=== PATIENT | female | born 1960 | race Caucasian/White ===

== ENCOUNTER 2025-09-19 16:09 | Observation (INO) | payer BC, SELFPAY ==
[2025-09-19] VITALS (23 sets, daily range): BP systolic 108–159; BP diastolic 64–102; PULSE 90–108; RESP 17–35; TEMP 37.2–37.6; O2SAT 94–100; BMI 47.5
--- NOTE | ~2025-09-19 | XR_ITS ---
EXAMINATION: XR chest 2V DATE: 09/19/2025 16:52 INDICATION: Upper respiratory tract infection. TECHNIQUE: Frontal and lateral views of the chest were obtained. COMPARISON: None. FINDINGS: Limited visualization due to large body habitus. Mild cardiomegaly is suggested. Suspect patchy airspace opacity in the right lower lobe. No effusion. IMPRESSION: 1. Mild cardiomegaly. Suspect airspace opacity due to consolidation in the right lower lobe. Possible pneumonia. Reviewed, dictated and finalized at location T. OR DATA DEVELOPER IMPRESSION: 1. Mild cardiomegaly. Suspect airspace opacity due to consolidation in the righ t lower lobe. Possible pneumonia.
--- NOTE | ~2025-09-19 | CT_ITS ---
EXAMINATION: CT soft tissue neck w con COMPARISON: None HISTORY: r/o peritonsillar abscess TECHNIQUE: Axial images were obtained with IV contrast. Sagittal, coronal reconstruction images were obtained from the axial views. Omnipaque 370, [address] scan performed using dose optimization techniques including the following automated exposure control; adjustment of mA and/or kV; use of iterative reconstruction technique. Automatic exposure control was used to reduce radiation dose. Permanent radiation dose record is archived to PACS. FINDINGS: Visualized brain parenchyma appears unremarkable. Optic globes are unremarkable. There is no thickening of the prevertebral space. There is asymmetry of the airway mass effect on the right side with marked enlargement and heterogeneity of the right tonsillar tissue. There is no rim-enhancing abscess identified however there is complex probable phlegmon noted measuring 1.5 x 1 cm. Edema extends into the base of the tongue, the uvula and the right aryepiglottic folds as well as the right vocal cord and posterior hypopharynx. There is no lymphadenopathy in the anterior superior mediastinum. No thickening of the esophagus There is stranding within the right parapharyngeal space. The left parapharyngeal space unremarkable. There are enlarged lymph nodes in the right jugulodigastric space and posterior cervical triangle the largest 1.5 x 1.5 cm. The submandibular glands are unremarkable. The parotid glands appear unremarkable. The lung apices are unremarkable. There are no sclerotic or lytic lesions. No significant sinusitis IMPRESSION: Severe tonsillitis detailed above with significant mass effect and narrowing of the airway with phlegmon detailed above although there is no rim- enhancing abscess at this time. Follow-up is recommended to assess Reviewed, dictated and finalized at location P. ETING ROTATION ASSOCIATE IMPRESSION: Severe tonsillitis detailed above with significant mass effect and narrowing of the airway with phlegmon detailed above although there is no rim-e nhancing abscess at this time. Follow-up is recommended to assess
--- NOTE | 2025-09-19 16:21 | ECG_ITS ---
Test Date: 2025-09-19 16:40:43 Measurements Intervals [place] Rate: 87 P: 44 MD: 144 QRS: 9 QRSD: 93 T: 51 QT: 337 QTc: 406 Interpretive Statements SINUS RHYTHM Electronically Signed On 09-19-2025 19:08:47 STOCKROOM COORDINATOR by Luba Mathur M.D.
--- NOTE | 2025-09-19 16:24 | ED_ITS ---
HPI - Neck Pain/Injury General Chief Complaint: Upper Respiratory Infection <Pennie Ricardo APRN - Last Filed: 09/19/25 18:30> Stated Complaint: swollen throat <Pennie Ricardo APRN - Last Filed: 09/19/25 18:30> Time Seen by Provider: 09/19/25 16:12 <Pennie Ricardo APRN - Last Filed: 09/19/25 18:30> History of Present Illness HPI Narrative: Patient is a 64-year-old female who presents to the ER with neck swelling and sore throat. She reports she was at urgent care several days ago and swab for strep throat. Patient reports the strep swab was negative but she was placed on antibiotics. She reports the swelling and pain have gotten worse. Patient reports she has a history of peritonsillar abscesses. She denies any recent fevers, neck stiffness, difficulty swallowing, or drooling. <Pennie Ricardo APRN - Last Filed: 09/19/25 18:30> Related Data Home Medications: Home Medications ?Medication ?Instructions ?Recorded ?Confirmed ?Last Taken ?Type cetirizine 5 mg-pseudoephedrine ER 1 tablet PO ONCE 09/19/25 09/18/25 History 120 mg tablet,extended release,12hr (All Day Allergy-D) ofloxacin 0.3 % ear drops 10 drp RIGHT EAR DAILY 09/1909/19/25 09/18/25 History <Pennie Ricardo APRN - Last Filed: 09/19/25 18:30> Allergies/Adverse Reactions: Allergies Allergy/AdvReac Type Severity Reaction Status Date / Time No Known Allergies Allergy Verified 09/19/25 21:27 <Pennie Ricardo APRN - Last Filed: 09/19/25 18:30> [facility] Past Medical History Medical History: Medical History (Updated 09/20/25 @ 19:20 by Rasta Leary MD) Fibroid tumor Peritonsillar abscess <Pennie Ricardo APRN - Last Filed: 09/19/25 18:30> Surgical History Surgical History: Surgical History (Updated 09/19/25 @ 21:41 by Claudia Choudhary APRN) H/O: hysterectomy History of incision and drainage Tonsillar abscess <Pennie Ricardo APRN - Last Filed: 09/19/25 18:30> Family History Family History: Family History Grandparent Parkinsons disease Grandparent Neuropathy Diabetes mellitus Father Hypertension Mother Hyperlipidemia <Pennie Ricardo APRN - Last Filed: 09/19/25 18:30> Social History Social History: Social History (Updated 09/19/25 @ 21:42 by Claudia Choudhary APRN) Social History: She is and has 1 daughter. She is retired. Her daughter lives in [place]. Code status: Full code Smoking status: Never smoker Alcohol intake: never Substance use: never Lack of Transportation: No Lack of Food: Never True Current Housing: I Have Housing Concerned About Future Housing: No Difficulty Paying Gas/Electric Bills: No Difficulty Paying for Meds: No Currently Unemployed: No Education: Bachelor's Degree Difficulty w/ Childcare or Family Care: No Spiritual care concerns: No <Pennie Ricardo APRN - Last Filed: 09/19/25 18:30> Exam 2 Narrative: GENERAL: Well appearing, well-nourished, non-toxic, in no acute distress. HEAD: Normocephalic, atraumatic. + redness to throat, right uvula deviation NECK: Supple. + bilateral cervical adenopathy. RESPIRATORY: Airway patent, respirations nonlabored. Slight crackles bilateral bases CARDIOVASCULAR: Regular rate and rhythm without murmurs, rubs, or gallops. Peripheral pulses 2+ and equal bilaterally. ABDOMINAL: Soft, nontender, nondistended, no hepatosplenomegaly. Normoactive BS. MUSCULOSKELETAL: Moves all extremities. Strength/ROM intact without gross deformities. SKIN: Warm, dry, normal color. No rashes. NEURO: A&O X3. Speech clear. Cranial nerves II-XII intact. No ataxic movements. PSYCHIATRIC: Appropriate mood and affect. Normal interaction. <Pennie Ricardo APRN - Last Filed: 09/19/25 18:30> Course WAITER/WAITRESS SECOND CLASS/PA Physician Supervision This visit was performed by both a physician and an Advanced Managed Care Provider. I performed all aspects of the Medical Decision Making as documented. <Rasta Leary MD - Last Filed: 09/20/25 19:20> Vital Signs Vital signs: Vital Signs Temperature 98.9 F 09/19/25 16:15 Pulse Rate 108 H 09/19/25 16:15 Respiratory Rate 25 H 09/19/25 16:15 Blood Pressure 159/102 H 09/19/25 16:15 Pulse Oximetry 98 09/19/25 16:15 Oxygen Delivery Room Air 09/19/25 16:15 Temperature 98.3 F 09/20/25 13:45 Pulse Rate 98 09/20/25 13:45 Respiratory Rate 20 09/20/25 13:45 Blood Pressure 134/74 09/20/25 13:45 Pulse Oximetry 98 09/20/25 13:45 Oxygen Delivery Room Air 09/19/25 23:00 <Pennie Ricardo, ADMITTING CLERK - Last Filed: 09/19/25 18:30> Vital Signs Temperature 98.9 F 09/19/25 16:15 Pulse Rate 108 H 09/19/25 16:15 Respiratory Rate 25 H 09/19/25 16:15 Blood Pressure 159/102 H 09/19/25 16:15 Pulse Oximetry 98 09/19/25 16:15 Oxygen Delivery Room Air 09/19/25 16:15 Temperature 98.3 F 09/20/25 13:45 Pulse Rate 98 09/20/25 13:45 Respiratory Rate 20 09/20/25 13:45 Blood Pressure 134/74 09/20/25 13:45 Pulse Oximetry 98 09/20/25 13:45 Oxygen Delivery Room Air 09/19/25 23:00 <Rasta Leary MD - Last Filed: 09/20/25 19:20> MDM - Neck Pain/Injury MDM Narrative Medical decision making narrative: Patient is a 64-year-old female who presents to the ER with neck swelling and sore throat. She reports she was at urgent care several days ago and swab for strep throat. Patient reports the strep swab was negative but she was placed on antibiotics. She reports the swelling and pain have gotten worse. Patient reports she has a history of peritonsillar abscesses. She denies any recent fevers, neck stiffness, difficulty swallowing, or drooling. Labs Ordered: CBC, CMP, CRP, lactic acid, PTT, INR Imaging Ordered: Chest x-ray, CT soft tissue neck Medications Ordered: 3 L normal saline IV bolus, ceftriaxone 1 g IV, Decadron 10 mg Results: Patient's CT scan indicates Visualized brain parenchyma appears unremarkable. Optic globes are unremarkable. There is no thickening of the prevertebral space. There is asymmetry of the airway mass effect on the right side with marked enlargement and heterogeneity of the right tonsillar tissue. There is no rim-enhancing abscess identified however there is complex probable phlegmon noted measuring 1.5 x 1 cm. Edema extends into the base of the tongue, the uvula and the right aryepiglottic folds as well as the right vocal cord and posterior hypopharynx. There is no lymphadenopathy in the anterior superior mediastinum. No thickening of the esophagus There is stranding within the right parapharyngeal space. The left parapharyngeal space unremarkable. There are enlarged lymph nodes in the right jugulodigastric space and posterior cervical triangle the largest 1.5 x 1.5 cm. The submandibular glands are unremarkable. The parotid glands appear unremarkable. The lung apices are unremarkable. There are no sclerotic or lytic lesions. No significant sinusitis IMPRESSION: Severe tonsillitis detailed above with significant mass effect and narrowing of the airway with phlegmon detailed above although there is no rim- enhancing abscess at this time. Follow-up is recommended to assess Consults:1740- Spoke with ENT, Dr. Murrieta, who advised pt be admitted to the hospital for further evaluation and treatment. She should receive Decadron every eight hours and Unasyn IV. Dr. Murrieta will see the pt tomorrow morning in the hospital. MDM: Results of imaging and lab work shared with patient and her family. It was advised patient be admitted to the hospital for further evaluation and treatment. Patient and her family verbalized understanding and are in agreement with plan. 1800- Spoke with hospitalist, Estefany Ospina NP, who is in agreement with plan for admission. Pt will be admitted to med/surg with continuous pulse oximetry. CRITICAL CARE ADDENDUM: Indication: Rule out sepsis Time type: intermittent I provided a total of 35 minutes of critical care excluding separately billable procedures. This includes time w/ EMS, initial bedside evaluation, reviewing old records, review of testing done while under my care, discussion w/ the family, nurses, consumer services consultant and guiding the patient?s care while in the emergency department. <Pennie Ricardo APRN - Last Filed: 09/19/25 18:30> Lab Data Result diagrams: 09/19/25 16:33 09/20/25 05:49 <Pennie Ricardo APRN - Last Filed: 09/19/25 18:30> Labs: Lab Results 09/19/25 Range/Units 16:33 WBC 9.5 (4.5-10.0) K/mm3 RBC 4.51 (4.2-5.4) M/mm3 Hgb 13.7 (12.0-15.0) g/dL Hct 41.8 (37.0-47.0) % MCV 92.7 (80-100) fl MCH 30.4 (26-34) pg MCHC 32.8 (32-36) g/dl RDW 14.2 (11.5-14.5) % Plt Count 285 (150-375) k/mm3 MPV 9.5 (7.4-10.4) fl Immature Gran % (Auto) 0.3 (0-0.5) % Neut % (Auto) 75.2 H (45.5-73.1) % Lymph % (Auto) 8.4 L (18.3-44.2) % [place] % (Auto) 14.4 H (2.6-8.5) % Eos % (Auto) 1.3 (0-4.4) % Baso % (Auto) 0.4 (0.2-1.2) % Lymph # (Auto) 0.80 L (0.9-3.2) K/mm3 [place] # (Auto) 1.4 H (0.1-0.6) K/mm3 Eos # (Auto) 0.1 (0-0.3) K/mm3 Baso # (Auto) 0.0 (0.0-0.1) K/mm3 Abs Immat Gran (auto) 0.03 (0.00-0.031) K/mm3 Absolute Neuts (auto) 7.1 H (1.3-6.7) K/mm3 Absolute Nucleated RBC 0.000 (0.0-0.012) K/mm3 Nucleated RBC % 0.0 (0.0-0.2) % PT 14.7 (11.1-14.7) Seconds INR 1.1 APTT 29.4 (22.3-36.8) Seconds Sodium 136 L (137-145) mmol/L Potassium 3.6 (3.4-5.0) mmol/L Chloride 102 (98-107) mmol/L Carbon Dioxide 25 (22-30) mmol/L Anion Gap 9 (4-12) mmol/L BUN 9 (7-17) mg/dL Creatinine 0.48 L (0.7-1.0) mg/dL Estim Creat Clear Calc 112 ml/min Estimated GFR > 60 (59 - ) Glucose 127 H (65-110) mg/dL Lactic Acid 1.2 (0.7-2.0) mmol/L Calcium 9.4 (8.4-10.2) mg/dL Total Bilirubin 0.6 (0.2-1.3) mg/dL AST 29 (14-36) U/L ALT 48 H (6-35) U/L Alkaline Phosphatase 87 (38-126) U/L C-Reactive Protein 15.1 H (<1.0) mg/dL Total Protein 7.8 (6.3-8.2) g/dL Albumin 4.2 (3.5-5.1) g/dL Monoscreen Negative (Negative) <Pennie Ricardo, ADMITTING CLERK - Last Filed: 09/19/25 18:30> Lab Results 09/19/25 Range/Units 16:33 WBC 9.5 (4.5-10.0) K/mm3 RBC 4.51 (4.2-5.4) M/mm3 Hgb 13.7 (12.0-15.0) g/dL Hct 41.8 (37.0-47.0) % MCV 92.7 (80-100) fl MCH 30.4 (26-34) pg MCHC 32.8 (32-36) g/dl RDW 14.2 (11.5-14.5) % Plt Count 285 (150-375) k/mm3 MPV 9.5 (7.4-10.4) fl Immature Gran % (Auto) 0.3 (0-0.5) % Neut % (Auto) 75.2 H (45.5-73.1) % Lymph % (Auto) 8.4 L (18.3-44.2) % [place] % (Auto) 14.4 H (2.6-8.5) % Eos % (Auto) 1.3 (0-4.4) % Baso % (Auto) 0.4 (0.2-1.2) % Lymph # (Auto) 0.80 L (0.9-3.2) K/mm3 [place] # (Auto) 1.4 H (0.1-0.6) K/mm3 Eos # (Auto) 0.1 (0-0.3) K/mm3 Baso # (Auto) 0.0 (0.0-0.1) K/mm3 Abs Immat Gran (auto) 0.03 (0.00-0.031) K/mm3 Absolute Neuts (auto) 7.1 H (1.3-6.7) K/mm3 Absolute Nucleated RBC 0.000 (0.0-0.012) K/mm3 Nucleated RBC % 0.0 (0.0-0.2) % PT 14.7 (11.1-14.7) Seconds INR 1.1 APTT 29.4 (22.3-36.8) Seconds Sodium 136 L (137-145) mmol/L Potassium 3.6 (3.4-5.0) mmol/L Chloride 102 (98-107) mmol/L Carbon Dioxide 25 (22-30) mmol/L Anion Gap 9 (4-12) mmol/L BUN 9 (7-17) mg/dL Creatinine 0.48 L (0.7-1.0) mg/dL Estim Creat Clear Calc 112 ml/min Estimated GFR > 60 (59 - ) Glucose 127 H (65-110) mg/dL Lactic Acid 1.2 (0.7-2.0) mmol/L Calcium 9.4 (8.4-10.2) mg/dL Total Bilirubin 0.6 (0.2-1.3) mg/dL AST 29 (14-36) U/L ALT 48 H (6-35) U/L Alkaline Phosphatase 87 (38-126) U/L C-Reactive Protein 15.1 H (<1.0) mg/dL Total Protein 7.8 (6.3-8.2) g/dL Albumin 4.2 (3.5-5.1) g/dL Monoscreen Negative (Negative) <Rasta Leary MD - Last Filed: 09/20/25 19:20> Critical Care Time Critical Care Time Critical Care Time: Yes <Pennie Ricardo APRN - Last Filed: 09/19/25 18:30> Total Critical Care Time: 35 <Pennie Ricardo APRN - Last Filed: 09/19/25 18:30> Discharge Plan Discharge Clinical Impression: Peritonsillar abscess <Pennie Ricardo APRN - Last Filed: 09/19/25 18:30> Patient Disposition: Still a Patient <Pennie Ricardo APRN - Last Filed: 09/19/25 18:30> Condition: Stable <Pennie Ricardo APRN - Last Filed: 09/19/25 18:30>
[2025-09-19] MEDS: SODIUM CHLORIDE 0.9% IV 1,000 ML 999 ML IV CONT ×3 (16:38)
[2025-09-19] MEDS: SODIUM CHLORIDE 0.9% IV 200 ML 999 ML IV CONT (16:39)
[2025-09-19] MEDS: dexAMETHasone SOD PHOS INJ 10 MG/ML 1 ML VIAL IV PUSH ×2 (16:39→22:59)
[2025-09-19 16:45] LABS: Hematocrit 41.8 % (37.0-47.0); Hemoglobin 13.7 g/dL (12.0-15.0); Immature Granulocyte Percent A 0.3 % (0-0.5); Lymphocytes Absolute Auto 0.80 K/mm3 (0.9-3.2); Mean Corpuscular HGB Conc 32.8 g/dl (32-36); Mean Corpuscular Hemoglobin 30.4 pg (26-34); Mean Corpuscular Volume 92.7 fl (80-100); Nucleated Red Blood Cells Absolute Auto 0.000 K/mm3 (0.0-0.012); Nucleated Red Blood Cells Perc 0.0 % (0.0-0.2); Platelet Count Result 285 k/mm3 (150-375); Red Blood Count 4.51 M/mm3 (4.2-5.4); White Blood Count 9.5 K/mm3 (4.5-10.0)
[2025-09-19 16:54] LABS: INR 1.1; Prothrombin Time 14.7 Seconds (11.1-14.7)
[2025-09-19 16:55] LABS: Partial Thromboplastin Time 29.4 Seconds (22.3-36.8)
[2025-09-19 16:57] LABS: Alanine Aminotransferase 48 U/L (6-35); Albumin Level 4.2 g/dL (3.5-5.1); Alkaline Phosphatase 87 U/L (38-126); Anion Gap 9 mmol/L (4-12); Aspartate Amino Transferase 29 U/L (14-36); Bilirubin,Total 0.6 mg/dL (0.2-1.3); Blood Urea Nitrogen 9 mg/dL (7-17); Calcium 9.4 mg/dL (8.4-10.2); Carbon Dioxide 25 mmol/L (22-30); Chloride 102 mmol/L (98-107); Estimated CRCL calculation 112 ml/min; Estimated Glomerular Filt Rate > 60; Glucose 127 mg/dL (65-110); Potassium 3.6 mmol/L (3.4-5.0); Sodium 136 mmol/L (137-145); Total Protein 7.8 g/dL (6.3-8.2)
[2025-09-19] MEDS: cefTRIAXone 1 GM in SODIUM CHLORIDE 0.9% IV 50 ML 100 ML IVPB (17:19)
[2025-09-19] MEDS: AMPICILLIN SODIUM/SULBACTAM 3 GM in SODIUM CHLORIDE 0.9% IV 100 ML 200 ML IVPB ×2 (18:11→23:00)
[2025-09-19 18:15] LABS: CRP 15.1 mg/dL (<1.0)
--- NOTE | 2025-09-19 19:47 | WPCEDHO ---
ED Hand Off Checklist All vitals saved:yes IV Site documented:yes All med administrations documented:yes Triage Note Triage Note pt to ed with c/o sore throat 09/19/25 16:15 that started on Monday where she was treated with antibiotics for strep or tonsilitis. patient has a history of peritonsillar abscess that needed to be lanced. pt states that she feels like her throat is swelling shut. patient has swelling to right neck/jaw Allergies No Known Allergies Allergy (Verified 09/19/25 16:26) Administered/Completed Medications Discontinued Medications Dexamethasone Sodium Phosphate (Dexamethasone Sod Phos Inj 10 Mg/Ml 1 Ml Vial) 10 mg IV PUSH ONCE ONE Stop: 09/19/25 16:22 Last Admin: 09/19/25 16:39 Dose: 10 mg Documented By: [facility] Ceftriaxone Sodium 1 gm/ (Sodium Chloride) 50 mls @ 100 mls/hr IVPB ONCE STA Stop: 09/19/25 16:50 Last Infusion: 09/19/25 17:48 Dose: Infused Documented By: [facility] Admin: 09/19/25 17:19 Dose: 100 mls/hr Documented By: [facility] Sodium Chloride (Normal Saline Iv) 1,000 mls @ 999 mls/hr IV CONT .Q1H1M STA Stop: 09/19/25 17:25 Last Admin: 09/19/25 16:38 Dose: 999 mls/hr Documented By: [facility] Sodium Chloride (Normal Saline Iv) 1,000 mls @ 999 mls/hr IV CONT .Q1H1M STA Stop: 09/19/25 17:25 Last Infusion: 09/19/25 18:13 Dose: Infused Documented By: [facility] Admin: 09/19/25 16:38 Dose: 999 mls/hr Documented By: [facility] Sodium Chloride (Normal Saline Iv) 1,000 mls @ 999 mls/hr IV CONT .Q1H1M STA Stop: 09/19/25 17:25 Last Infusion: 09/19/25 17:47 Dose: Infused Documented By: [facility] Admin: 09/19/25 16:38 Dose: 999 mls/hr Documented By: [facility] Sodium Chloride (Normal Saline Iv) 200 mls @ 999 mls/hr IV CONT .Q13M STA Stop: 09/19/25 16:37 Last Infusion: 09/19/25 17:47 Dose: Infused Documented By: [facility] Admin: 09/19/25 16:39 Dose: 999 mls/hr Documented By: [facility] Ampicillin Sodium/Sulbactam (Sodium 3 gm/ Sodium Chloride) 100 mls @ 200 mls/hr IVPB ONCE ONE Stop: 09/19/25 18:24 Last Infusion: 09/19/25 18:44 Dose: Infused Documented By: [facility] Admin: 09/19/25 18:11 Dose: 200 mls/hr Documented By: [facility] Sodium Chloride (Stat Bolus Communication Order) 3,159 ml 30 ml/kg (3159 ml) IV CONT ONCE STA Stop: 09/19/25 16:22 Last Admin: 09/19/25 17:48 Dose: Not Given Documented By: [facility] Non-Admin Reason: Duplicate Dose Interventions/Assessments IV / Saline Lock, Insert Start: 09/19/25 16:10 Freq: Status: Active Protocol: Document 09/19/25 16:31 [facility] (Rec: 09/19/25 16:31 [facility] [id number]) IV Assessment Peripheral Access Right Antecubital IV Catheter Access Initiated IV Insertion Date 09/19/25 IV Insertion Time 16:31 Catheter Gauge 20 IV Insertion 1 Attempts Ultrasound Used for No Placement IV Site Assessment WNL IV Care and WNL Maintenance PA: HEENT Assessment Start: 09/19/25 16:14 Freq: Status: Active Protocol: Document 09/19/25 16:31 [facility] (Rec: 09/19/25 16:32 [facility] [id number]) Head and Neck Assessment Mouth Symptoms/ None/Normal Appearance Lip Description Normal for Patient Teeth Description Intact Orthodontic/Dental None Assistive Devices Tongue Description Normal Throat Symptoms/ Swallowing Difficulty,Swelling,Tonsil Redness,Tonsil Appearance Swelling PA: Respiratory Assessment Start: 09/19/25 16:10 Freq: Status: Active Protocol: Document 09/19/25 16:31 [facility] (Rec: 09/19/25 16:31 [facility] [id number]) Respiratory Assessment Symptoms None Effort Normal Pattern Regular Depth Normal Chest Expansion Symmetrical Adult Capillary Normal/Less than 2 Seconds Refill Bilateral Throughout Phase Inspiratory & Expiratory Lung Sounds Clear Cough Description None Oxygen Delivery Oxygen Delivery Room Air Pulse Oximetry (90- 95 100) Last Vital Signs Temperature 98.9 F 09/19/25 16:15 Pulse Rate 96 09/19/25 19:32 Respiratory Rate 25 H 09/19/25 19:32 Pulse Oximetry 94 09/19/25 19:32 Blood Pressure 156/68 H 09/19/25 19:32 Blood Pressure Mean 90 09/19/25 19:32 Oxygen Delivery Room Air 09/19/25 16:31 Weight 105.3 kg 09/19/25 16:15 Last Result - Abnormals Only Neut % (Auto) 75.2 % (45.5-73.1) H 09/19/25 16:33 Lymph % (Auto) 8.4 % (18.3-44.2) L 09/19/25 16:33 [place] % (Auto) 14.4 % (2.6-8.5) H 09/19/25 16:33 Lymph # (Auto) 0.80 K/mm3 (0.9-3.2) L 09/19/25 16:33 [place] # (Auto) 1.4 K/mm3 (0.1-0.6) H 09/19/25 16:33 Absolute Neuts (auto) 7.1 K/mm3 (1.3-6.7) H 09/19/25 16:33 Sodium 136 mmol/L (137-145) L 09/19/25 16:33 Creatinine 0.48 mg/dL (0.7-1.0) L 09/19/25 16:33 Glucose 127 mg/dL (65-110) H 09/19/25 16:33 ALT 48 U/L (6-35) H 09/19/25 16:33 C-Reactive Protein 15.1 mg/dL (<1.0) H 09/19/25 16:33 Most Recent Suicide Severity Rating Suicide Severity Rating NO RISK INDICATED 09/19/25 16:15
--- NOTE | 2025-09-19 20:50 | PM.IMHP ---
H&P: HPI History of Present Illness Date/Time: 09/19/25 20:50 Chief Complaint: Swollen throat Narrative: This is a 64-year-old female patient who has had a history of peritonsillar abscess in the past. The patient developed a sore throat approximately 3-4 days ago. She was seen at the [facility] and tested negative for strep throat. She denies having any cultures drawn at that time. However she was placed on amoxicillin and the patient stated after 2-3 higher doses she felt worse and was not getting any better. She denies any fever chills. However the patient stated she felt like her throat was closing and she could not swallow her food. She has an appointment with her primary care doctor this following Monday but felt that she could not wait that long. Her white count is normal. Neutrophils are 75.2. Sodium was low at 136. glucose is 127. Her C reactive protein is 15.1. A chest x-ray was read as mild cardiomegaly. Suspect airspace opacities due to consolidation in the right lower lobe. Possible pneumonia. Soft tissue CT was read as severe tonsillitis detailed above was significant mass and narrowing of the airway with phlegmon detailed above although there is no rim enhancing abscess at this time. Follow-up is recommended to assess. Patient's temperature is 37.2? C. heart rate 108 blood pressure was elevated to 159/102. She has no prior history of hypertension. The patient was given at 3 L bolus. Initially she was started on ceftriaxone 1 g IV and Decadron 10 mg. ER spoke with Dr. Murrieta and he recommended Unasyn and Decadron. The patient is being admitted to observation status on the date of service of 09/19/2025 Review of Systems Constitutional: Constitutional: Reports as per HPI and Reports no additional constitutional complaints Eyes: Eyes: Reports as per HPI and Reports no additional eye complaints ENT: Reports system reviewed and no additional complaints, except as documented and Reports Normal hearing present Cardiovascular: Cardiovascular: Reports no additional cardiovascular complaints Respiratory: Respiratory: Reports as per HPI and Reports no additional respiratory complaints Gastrointestinal: Gastrointestinal: Reports as per HPI and Reports no additional gastrointestinal complaints Genitourinary: Genitourinary: Reports no additional female genitourinary complaints Musculoskeletal: Musculoskeletal: Reports no additional musculoskeletal complaints Integumentary/Breasts: Skin/Breast: Reports system reviewed and no additional complaints, except as docu Neurologic: Reports system reviewed and no additional complaints, except as documented and Reports Normal hearing present Psychiatric: Psychiatric: Reports no additional psychiatric complaints and Reports as per HPI Hematologic/Lymphatic: Hematologic/Lymphatic: Reports no additional hematologic/lymphatic complaints Allergic/Immunologic: Allergic/Immunologic: Reports no additional allergic/immunologic complaints [facility] Past Medical History Medical History (Updated 09/19/25 @ 22:00 by Claudia Choudhary APRN) Fibroid tumor Peritonsillar abscess Surgical History Surgical History (Updated 09/19/25 @ 21:41 by Claudia Choudhary APRN) H/O: hysterectomy History of incision and drainage Tonsillar abscess Family History Family History Grandparent Parkinsons disease Grandparent Neuropathy Diabetes mellitus Father Hypertension Mother Hyperlipidemia Social History Social History (Updated 09/19/25 @ 21:42 by Claudia Choudhary APRN) Social History: She is and has 1 daughter. She is retired. Her daughter lives in [place]. Code status: Full code Smoking status: Never smoker Alcohol intake: never Substance use: never Lack of Transportation: No Lack of Food: Never True Current Housing: I Have Housing Concerned About Future Housing: No Difficulty Paying Gas/Electric Bills: No Difficulty Paying for Meds: No Currently Unemployed: No Education: Bachelor's Degree Difficulty w/ Childcare or Family Care: No Spiritual care concerns: No Meds Home Medications and Allergies Home Medications ?Medication ?Instructions ?Recorded ?Confirmed ?Type amoxicillin 500 mg capsule 500 mg PO BID 09/19/25 09/19/25 History cetirizine 5 mg-pseudoephedrine ER 1 tablet PO ONCE 09/19/25 09/19/25 History 120 mg tablet,extended release,12hr (All Day Allergy-D) ofloxacin 0.3 % ear drops 10 drp RIGHT EAR DAILY 09/19/25 09/19/25 History Allergies Allergy/AdvReac Type Severity Reaction Status Date / Time No Known Allergies Allergy Verified 09/19/25 21:27 Vital Signs Vital Signs - 24 hr 09/19/25 16:15 09/19/25 16:23 09/19/25 16:30 Temperature 98.9 F Pulse Rate 108 H 99 98 Respiratory Rate 25 H 19 26 H Blood Pressure 159/102 H Pulse Oximetry 98 97 95 Oxygen Delivery Room Air 09/19/25 16:31 09/19/25 17:19 09/19/25 17:20 Temperature Pulse Rate 97 Respiratory Rate 26 H Blood Pressure 150/82 H Pulse Oximetry 95 97 95 Oxygen Delivery Room Air 09/19/25 17:30 09/19/25 17:31 09/19/25 17:45 Temperature Pulse Rate 96 102 H 93 Respiratory Rate 23 H 35 H 23 H Blood Pressure 141/88 H Pulse Oximetry 95 96 100 Oxygen Delivery 09/19/25 18:05 09/19/25 18:15 09/19/25 18:16 Temperature Pulse Rate 95 93 94 Respiratory Rate 29 H 22 H 20 Blood Pressure 140/80 Pulse Oximetry 96 98 98 Oxygen Delivery 09/19/25 18:30 09/19/25 18:31 09/19/25 18:46 Temperature Pulse Rate 90 92 92 Respiratory Rate 28 H 26 H 17 Blood Pressure 108/64 127/69 Pulse Oximetry 96 96 97 Oxygen Delivery 09/19/25 18:47 09/19/25 19:00 09/19/25 19:01 Temperature Pulse Rate 91 92 92 Respiratory Rate 29 H 26 H 26 H Blood Pressure 132/69 Pulse Oximetry 97 97 98 Oxygen Delivery 09/19/25 19:15 09/19/25 19:17 09/19/25 19:31 Temperature Pulse Rate 99 93 93 Respiratory Rate 20 18 Blood Pressure 151/90 H Pulse Oximetry 97 95 Oxygen Delivery 09/19/25 19:32 Temperature Pulse Rate 96 Respiratory Rate 25 H Blood Pressure 156/68 H Pulse Oximetry 94 Oxygen Delivery Exam Const: General: cooperative, no acute distress, well developed, awake, Physically active, ill appearing, average body habitus and well nourished Nutritional Appearance: average body habitus and well nourished Orientation/consciousness: oriented to person, oriented to place, oriented to time and patient oriented x3 Limitations: no limitations HENMT: Head: normal to inspection, No palpable skull fracture present, normocephalic, atraumatic and abrasion Ears: hearing grossly normal bilaterally and external ears normal Face/Nose/Sinus: Normal external nose present and Normal nares present Throat: uvula midline, abnormal tonsil diffuse and uvular edema Other: Erythema to posterior pharynx. 3+ tonsils nearly touching the uvula. No drainage or discharge or abscess seen at this time. It was very difficult to get the tongue moved out of the way to assess the posterior pharynx. Eyes: General: appearance normal, both eyes and all related structures Alignment and Position: alignment normal Periorbital: periorbital findings normal Eyelids: eyelids normal Neck: Neck: normal visual inspection, full ROM, no lymphadenopathy, trachea midline, supple, anterior neck swelling, lymphadenopathy (Anterior cervical chain) and tender Thyroid: thyroid normal Lymphatic: lymphedema Chest: Chest palpation & inspection: normal inspection of the chest Resp: Effort & Inspection: normal respiratory effort Cardio: Palpation: normal PMI Rate: regular rate Rhythm: regular rhythm Heart sounds: S1 normal heart sound present, S2 normal heart sound present and Murmur heart sound present systolic Peripheral pulses: Peripheral pulses 2+ throughout GI: Inspection: normal to inspection Percussion: Yes normal to percussion Auscultation: normal bowel sounds Rectal Exam: deferred Skin: General skin exam: normal color Lesions: no lesions Rashes: no rashes Trauma: no lacerations or abrasions Wounds: no wounds Hair: normal Nails: normal Neuro: General: oriented to person, oriented to place, oriented to time and patient oriented x3 Cranial nerves: Yes Equal, round and reactive pupils present and Yes Normal hearing present Cognition (Neuro): normal cognition Speech: normal speech Gait exam (Neuro): Normal gait present Motor exam (neuro): 5/5 motor strength present throughout Sensory Exam: normal sensation Extrem: General: normal to inspection Right upper extremity: normal to inspection and shoulder/upper arm Left upper extremity: normal to inspection and shoulder/upper arm Right lower extremity: normal to inspection Left lower extremity: normal to inspection Psych: Appearance: grossly normal Mental Status: mental status grossly normal Speech and movement: Normal speech and movement present Affect: normal affect Attitude: cooperative Thought process: Normal thought process present Thought content: Yes Normal thought content present Insight: Good insight present (Psych) Judgement: Good judgement present (Psych) H&P: Results Labs Labs: Short CBC 09/19/25 Range/Units 16:33 WBC 9.5 (4.5-10.0) K/mm3 Hgb 13.7 (12.0-15.0) g/dL Hct 41.8 (37.0-47.0) % Plt Count 285 (150-375) k/mm3 BMP 09/19/25 16:33 Sodium 136 L Potassium 3.6 Chloride 102 Carbon Dioxide 25 BUN 9 Creatinine 0.48 L Glucose 127 H Calcium 9.4 Liver Function 09/19/25 Range/Units 16:33 Total Bilirubin 0.6 (0.2-1.3) mg/dL AST 29 (14-36) U/L ALT 48 H (6-35) U/L Alkaline Phosphatase 87 (38-126) U/L Albumin 4.2 (3.5-5.1) g/dL ECG Interpretation: Test Date: 2025-09-19 16:40:43 Measurements Intervals Isabela Rate: 87 P: 44 NH: 144 QRS: 9 QRSD: 93 T: 51 QT: 337 QTc: 406 Interpretive Statements SINUS RHYTHM Electronically Signed On 09-19-2025 19:08:47 [employer]ADESHOW WORKER by Luba Mathur M.D. Imaging CT neck: Radiologist's impression: Impressions Chest X-Ray 09/19/25 16:54 IMPRESSION: 1. Mild cardiomegaly. Suspect airspace opacity due to consolidation in the right lower lobe. Possible pneumonia. Soft Tissue Neck CT 09/19/25 17:21 IMPRESSION: Severe tonsillitis detailed above with significant mass effect and narrowing of the airway with phlegmon detailed above although there is no rim-enhancing abscess at this time. Follow-up is recommended to assess Assessment and Plan Assessment and plan (1) Tonsillitis: Code(s): J03.90 - Acute tonsillitis, unspecified Status: Acute Assessment and Plan: Soft Tissue Neck CT 09/19/25 17:21 IMPRESSION: Severe tonsillitis detailed above with significant mass effect and narrowing of the airway with phlegmon detailed above although there is no rim-enhancing abscess at this time. Follow-up is recommended to asses -3+ tonsils with here erythema. Tonsils are nearly touching the uvula. The uvula is edematous as well. -the patient had been on outpatient amoxicillin. The patient was given a dose of IV Rocephin. -ENT recommended that the patient be placed on Unasyn. The patient was started on Unasyn 3 g every 6 hours. -throat and blood cultures are pending. -the patient's heart rate is over [address] her in sepsis protocol. However she has no white count and her blood pressure is elevated. -continue with good tore lack. -continue with IV fluids. -her CRP was elevated. -continue with Chloraseptic spray -continue with ketorolac but monitor renal function -continue with Decadron -patient tested negative for strep A atan outside urgent care. -throat culture was sent from here. -also check for mono as well. -daily CBC (2) Cardiomegaly: Code(s): I51.7 - Cardiomegaly Status: Acute Assessment and Plan: - echo ordered (3) Elevated blood pressure reading: Code(s): R03.0 - Elevated blood-pressure reading, without diagnosis of hypertension Status: Acute Assessment and Plan: -patient has no prior history of hypertension. Could be related to discomfort. -p.r.n. hydralazine with parameters. Plan Mild cardiomegaly. Suspect airspace opacity due to consolidation in the right lower lobe. Possible pneumonia. The patient denies having any history of CHF are having an enlarged heart. She is not having any signs and symptoms at this time. She also stated that she is aware that she has a murmur. May consider an echo at this time. Quality VTE Prophylaxis VTE prophylaxis: mechanical ordered
[2025-09-19] MEDS: KETOROLAC 30 MG/ML VIAL (*BKC) IV PUSH (20:55)
[2025-09-19] MEDS: SODIUM CHLORIDE 0.9% IV 1,000 ML 125 ML IV CONT (20:57)
--- NOTE | 2025-09-19 21:04 | ADMGEN ---
This patient, Nori Sullivan, was admitted to 3 [facility] Surg Room 320-01. Patient/family oriented to hospital policies and general routines including ID bracelet, bed and alarms, visiting hours, pain management, procedures, bathroom and other care routines, personal items, smoking policy, room service/diet, and visiting hours. Information on how to activate the Rapid Response Team has been discussed. Patient/Family are encouraged to report perceived risks to care and to ask questions if they do not understand what they are told or what they should do.
[2025-09-19 22:19] LABS: Negative Monotest Control Negative (Negative); Positive Monotest Control Positive (Positive)
--- NOTE | 2025-09-20 | ECHO_ITS ---
Patient Info Name: Nori Sullivan Age: 64 years : 1960 Gender: Female Ht: 62 in Wt: 232 lbs BSA: 2.21 m2 HR: 77 bpm BP: 142 / 66 mmHg Technical Quality: Good Exam Date: 09/20/2025 8:43 AM Patient Status: I Admit Date: 09/19/2025 Exam Type: CA echo doppler color flow Complete two-dimensional, color flow and Doppler transthoracic echocardiogram is performed. Staff Referring Physician: Pennie Ricardo Order Control Clerk Blood Bank: Simi Johnson Attending Provider: Rei Elena MD Summary 1. Complete two-dimensional, color flow and Doppler transthoracic echocardiogram is performed. 2. Left ventricular systolic function is normal, estimated at 60-65. 3. The left ventricular diastolic function is normal. 4. There is mild tricuspid valve regurgitation. 5. No pulmonary hypertension, estimated pulmonary arterial systolic pressure is 16 mmHg. Left Ventricle Left ventricular chamber dimension is normal. Left ventricular systolic function is normal, estimated at 60-65. There is no increased left ventricular wall thickness. Left ventricular septal wall motion is normal. The left ventricular diastolic function is normal. Right Ventricle Right ventricular chamber dimension is normal. Right ventricular systolic function is normal. Left Atria Left atrial chamber dimension is normal. Right Atria Right atrial chamber dimension is normal. Aortic Valve The aortic valve is trileaflet. There is no aortic valve sclerosis. There is no aortic valve stenosis. There is no aortic valve regurgitation. Pulmonic Valve The pulmonic valve is normal. There is no pulmonic valve stenosis. There is no pulmonic regurgitation. Mitral Valve The mitral valve has normal leaflets. There is no mitral valve stenosis. There is no mitral valve regurgitation. Tricuspid Valve The tricuspid valve leaflets are normal. There is no significant tricuspid valve stenosis. There is mild tricuspid valve regurgitation. No pulmonary hypertension, estimated pulmonary arterial systolic pressure is 16 mmHg. Pericardium/Pleural The pericardium appears normal. There is no pericardial effusion. Inferior Vena Cava Normal inferior vena cava with >50% collapse upon inspiration consistent with normal right atrial pressure, 5 mmHg. Aorta The aortic root size at the sinus of Valsalva is normal. The prox ascending aorta size is normal. Left Ventricular Outflow Tract Name Value Normal LVOT 2D LVOT Diameter 2.1 cm LVOT Doppler LVOT Peak Velocity 134 cm/s LVOT Peak Gradient 7 mmHg LVOT Mean Gradient 4 mmHg LVOT VTI 34 cm LVOT Stroke Volume 116 ml LVOT CO 8.9 l/min LVOT CI 4.0 l/min/m2 Pulmonic Valve Name Value Normal RVOT Doppler RVOT Peak Velocity 99 cm/s RVOT Peak Gradient 4 mmHg PV Doppler PV Peak Velocity 118 cm/s PV Peak Gradient 6 mmHg Mitral Valve Name Value Normal MV Diastolic Function MV E Peak Velocity 116 cm/s MV A Peak Velocity 124 cm/s MV E/A 0.9 MV Decel Time (PW) 165 ms MV Annular TDI MV E/e' (Septal) 16.1 MV E/e' (Lateral) 18.1 MV E/e' (Average) 17.1 Tricuspid Valve Name Value Normal TV Regurgitation Doppler TR Peak Velocity 169 cm/s TR Peak Gradient 11 mmHg Estimated PAP/RSVP RA Pressure 5 mmHg <=5 PA Systolic Pressure 16 mmHg <36 RV Systolic Pressure 16 mmHg <36 Aortic Valve Name Value Normal AV Doppler AV Peak Velocity 165 cm/s AV Peak Gradient 11 mmHg AV Area (Cont Eq Raffaele) 2.8 cm2 AV DI (Raffaele) 0.81 AV Regurgitation 2D LVOT Area 3.4 cm2 Ventricles Name Value Normal LV Dimensions 2D/MM IVS Diastolic Thickness (2D) 1.0 cm 0.6-1.0 LVID Diastole (2D) 5.4 cm 3.8-5.2 LVIW Diastolic Thickness (2D) 0.8 cm 0.6-0.9 LVID Systole (2D) 3.7 cm 2.2-3.5 LVOT Diameter 2.1 cm LV Mass (2D Cubed) 183.94 g 67.00-162.00 LV Mass Index (2D Cubed) 83 g/m2 43-95 Relative Wall Thickness (2D) 0.31 <=0.42 LV Fractional Shortening/Ejection Fraction 2D/MM LV Fractional Shortening (2D) 32 % 27-45 LV EF (2D Teichholz) 60 % LV Diastolic Volume (4C MOD) 97 ml LV EF (4C MOD) 62 % LV Diastolic Volume (2C MOD) 88 ml LV EF (2C MOD) 69 % LV Diastolic Volume (BP MOD) 93 ml 46-106 LV Diastolic Volume Index (BP MOD) 42 ml/m2 29-61 LV Systolic Volume (BP MOD) 33 ml 14-42 LV Systolic Volume Index (BP MOD) 15 ml/m2 8-24 LV EF (BP MOD) 65 % 54-74 LV Diastolic Length (4C) 7.7 cm LV Systolic Length (4C) 6.3 cm LV Stroke Volume (4C MOD) 60 ml Atria Name Value Normal LA Dimensions LA Volume (4C A-L) 58 ml LA Volume (BP A-L) 66 ml RA Dimensions RA Systolic Major [place] Length (4C) 5.3 cm 2.2-2.8 RA Area (4C) 17.0 cm2 <=18.0 Report Signatures
[2025-09-20 05:08] VITALS: BP 142/66; PULSE 93; RESP 18; TEMP 36.5; O2SAT 98
[2025-09-20] MEDS: AMPICILLIN SODIUM/SULBACTAM 3 GM in SODIUM CHLORIDE 0.9% IV 100 ML 200 ML IVPB ×3 (05:24→16:16)
[2025-09-20] MEDS: SODIUM CHLORIDE 0.9% IV 1,000 ML 125 ML IV CONT ×2 (05:24→14:21)
[2025-09-20] MEDS: dexAMETHasone SOD PHOS INJ 10 MG/ML 1 ML VIAL IV PUSH ×2 (05:25→13:37)
[2025-09-20] MEDS: PHENOL/SOD PHENO SPRAY CHERRY (*BKC) 1 SPRAY MUCOUS MEM (05:26)
[2025-09-20 06:27] LABS: Anion Gap 7 mmol/L (4-12); Blood Urea Nitrogen 8 mg/dL (7-17); Calcium 8.8 mg/dL (8.4-10.2); Carbon Dioxide 25 mmol/L (22-30); Chloride 106 mmol/L (98-107); Estimated CRCL calculation 135 ml/min; Estimated Glomerular Filt Rate > 60; Glucose 175 mg/dL (65-110); Potassium 4.2 mmol/L (3.4-5.0); Sodium 138 mmol/L (137-145)
--- NOTE | 2025-09-20 08:20 | WPDPROCEDUR ---
Procedures Other Procedures Procedure 1: Other Procedure: Incision and drainage of right peritonsillar abscess. Verbal consent obtained risks benefits costs discussed in great detail. Right peritonsillar region anesthetized with 2 cc 1% lidocaine 1 100,000 parts epinephrine. Eleven blade used to make incisions in the mucosa. Keerthi clamp utilized to open the abscess copious amounts purulence expressed. Cultures x2 obtained. Complex dissection with the Keerthi hemostat performed all loculations opened up more purulence emanated. Patient tolerated the procedure well minimal bleeding.
--- NOTE | 2025-09-20 08:22 | WPDCN ---
Assessment and Plan Assessment and plan (1) Tonsillitis: Code(s): J03.90 - Acute tonsillitis, unspecified Status: Acute (2) Peritonsillar abscess: Code(s): J36 - Peritonsillar abscess Status: Acute Plan Right TRAFFIC ENUMERATOR opened, copious amounts of purulence. Recommend discharge X to 14 days of Augmentin 825/125 b.i.d.. Also Medrol Dosepak. Please have the patient follow up with me next week. If the patient continues to improve throughout the day she is clear from my standpoint for discharge this afternoon/evening. HPI Data of Consult Date/Time: 09/20/25 08:22 Requesting Physician: Alo Elena MD Primary Care Provider: PHYSICIAN NOT ON STAFF Consult Narrative Narrative: Nori Sullivan is a 64 year old female with right-sided sore throat. Imaging reviewed looks like there is a TRAFFIC ENUMERATOR. Review of Systems Review of Systems: All systems reviewed & are unremarkable except as noted in HPI and below PMFSH Past Medical History Medical History (Updated 09/20/25 @ 08:23 by Moo Murrieta MD) Fibroid tumor Peritonsillar abscess Surgical History Surgical History (Updated 09/19/25 @ 21:41 by Claudia Choudhary APRN) H/O: hysterectomy History of incision and drainage Tonsillar abscess Family History Family History Grandparent Parkinsons disease Grandparent Neuropathy Diabetes mellitus Father Hypertension Mother Hyperlipidemia Social History Social History (Updated 09/19/25 @ 21:42 by Claudia Choudhary APRN) Social History: She is and has 1 daughter. She is retired. Her daughter lives in [place]. Code status: Full code Smoking status: Never smoker Alcohol intake: never Substance use: never Lack of Transportation: No Lack of Food: Never True Current Housing: I Have Housing Concerned About Future Housing: No Difficulty Paying Gas/Electric Bills: No Difficulty Paying for Meds: No Currently Unemployed: No Education: Bachelor's Degree Difficulty w/ Childcare or Family Care: No Spiritual care concerns: No Meds Home Medications and Allergies Home Medications ?Medication ?Instructions ?Recorded ?Confirmed ?Type amoxicillin 500 mg capsule 500 mg PO BID 09/19/25 09/19/25 History cetirizine 5 mg-pseudoephedrine ER 1 tablet PO ONCE 09/19/25 09/19/25 History 120 mg tablet,extended release,12hr (All Day Allergy-D) ofloxacin 0.3 % ear drops 10 drp RIGHT EAR DAILY 09/19/25 09/19/25 History Allergies Allergy/AdvReac Type Severity Reaction Status Date / Time No Known Allergies Allergy Verified 09/19/25 21:27 Vital Signs Vital Signs - 24 hr 09/19/25 16:15 09/19/25 16:23 09/19/25 16:30 Temperature 37.2 C Pulse Rate 108 H 99 98 Respiratory Rate 25 H 19 26 H Blood Pressure 159/102 H Pulse Oximetry 98 97 95 Oxygen Delivery Room Air 09/19/25 16:31 09/19/25 17:19 09/19/25 17:20 Temperature Pulse Rate 97 Respiratory Rate 26 H Blood Pressure 150/82 H Pulse Oximetry 95 97 95 Oxygen Delivery Room Air 09/19/25 17:30 09/19/25 17:31 09/19/25 17:45 Temperature Pulse Rate 96 102 H 93 Respiratory Rate 23 H 35 H 23 H Blood Pressure 141/88 H Pulse Oximetry 95 96 100 Oxygen Delivery 09/19/25 18:05 09/19/25 18:15 09/19/25 18:16 Temperature Pulse Rate 95 93 94 Respiratory Rate 29 H 22 H 20 Blood Pressure 140/80 Pulse Oximetry 96 98 98 Oxygen Delivery 09/19/25 18:30 09/19/25 18:31 09/19/25 18:46 Temperature Pulse Rate 90 92 92 Respiratory Rate 28 H 26 H 17 Blood Pressure 108/64 127/69 Pulse Oximetry 96 96 97 Oxygen Delivery 09/19/25 18:47 09/19/25 19:00 09/19/25 19:01 Temperature Pulse Rate 91 92 92 Respiratory Rate 29 H 26 H 26 H Blood Pressure 132/69 Pulse Oximetry 97 97 98 Oxygen Delivery 09/19/25 19:15 09/19/25 19:17 09/19/25 19:31 Temperature Pulse Rate 99 93 93 Respiratory Rate 20 18 Blood Pressure 151/90 H Pulse Oximetry 97 95 Oxygen Delivery 09/19/25 19:32 09/19/25 21:18 09/19/25 23:00 Temperature 37.6 C Pulse Rate 96 94 Respiratory Rate 25 H 20 Blood Pressure 156/68 H 147/79 H Pulse Oximetry 94 95 Oxygen Delivery Room Air 09/20/25 05:08 Temperature 36.5 C Pulse Rate 93 Respiratory Rate 18 Blood Pressure 142/66 H Pulse Oximetry 98 Oxygen Delivery Exam Narrative: Exam consistent with right-sided peritonsillar abscess Results Labs 09/19/25 16:33 09/20/25 05:49 Labs: Short CBC 09/19/25 Range/Units 16:33 WBC 9.5 (4.5-10.0) K/mm3 Hgb 13.7 (12.0-15.0) g/dL Hct 41.8 (37.0-47.0) % Plt Count 285 (150-375) k/mm3 [facility] 09/19/25 09/20/25 16:33 05:49 Sodium 136 L 138 Potassium 3.6 4.2 Chloride 102 106 Carbon Dioxide 25 25 BUN 9 8 Creatinine 0.48 L 0.42 L Glucose 127 H 175 H Calcium 9.4 8.8 Liver Function 09/19/25 Range/Units 16:33 Total Bilirubin 0.6 (0.2-1.3) mg/dL AST 29 (14-36) U/L ALT 48 H (6-35) U/L Alkaline Phosphatase 87 (38-126) U/L Albumin 4.2 (3.5-5.1) g/dL
[2025-09-20 13:45] VITALS: BP 134/74; PULSE 98; RESP 20; TEMP 36.8; O2SAT 98
--- NOTE | 2025-09-20 14:33 | PM.DS ---
DS: Admitting Diagnosis Discharge Date 09/20/2025 Admitting Diagnosis Sore throat DS: Discharge Diagnosis Discharge Diagnosis (1) Tonsillitis: Code(s): J03.90 - Acute tonsillitis, unspecified Status: Acute (2) Cardiomegaly: Code(s): I51.7 - Cardiomegaly Status: Acute (3) Elevated blood pressure reading: Code(s): R03.0 - Elevated blood-pressure reading, without diagnosis of hypertension Status: Acute DS: Summary Hospital Course Hospital Course: This is a 64-year-old female patient who has had a history of peritonsillar abscess in the past. The patient developed a sore throat approximately 3-4 days ago. She was seen at the [facility] and tested negative for strep throat. She denies having any cultures drawn at that time. However she was placed on amoxicillin and the patient stated after 2-3 higher doses she felt worse and was not getting any better. She denies any fever chills. However the patient stated she felt like her throat was closing and she could not swallow her food. She has an appointment with her primary care doctor this following Monday but felt that she could not wait that long. Her white count is normal. Neutrophils are 75.2. Sodium was low at 136. glucose is 127. Her C reactive protein is 15.1. A chest x-ray was read as mild cardiomegaly. Suspect airspace opacities due to consolidation in the right lower lobe. Possible pneumonia. Soft tissue CT was read as severe tonsillitis detailed above was significant mass and narrowing of the airway with phlegmon detailed above although there is no rim enhancing abscess at this time. Follow-up is recommended to assess. She was admitted for further treatment and was started on IV antibiotics with Unasyn and Decadron. Patient was seen by ENT and underwent incision and drainage of right peritonsillar abscess. Patient with follow-up with ENT as an outpatient basis which is already scheduled. She will continue on oral antibiotic along with steroid at discharge. She was noted to have murmur on examination an echocardiogram was performed which was unremarkable. Time Spent with Patient Time attestation: Total time spent providing and/or coordinating discharge services: 35 minutes Exam Narrative: GENERAL: Well appearing, well-nourished, non-toxic, in no acute distress. HEAD: Normocephalic, atraumatic NECK: Supple. + bilateral cervical adenopathy. RESPIRATORY: Airway patent, respirations nonlabored. CARDIOVASCULAR: Regular rate and rhythm without murmurs, rubs, or gallops. Peripheral pulses 2+ and equal bilaterally. ABDOMINAL: Soft, nontender, nondistended, no hepatosplenomegaly. Normoactive BS. MUSCULOSKELETAL: Moves all extremities. Strength/ROM intact without gross deformities. SKIN: Warm, dry, normal color. No rashes. NEURO: A&O X3. Speech clear. Cranial nerves II-XII intact. No ataxic movements. PSYCHIATRIC: Appropriate mood and affect. Normal interaction. DS: Data Data Completed and Pending Completed studies during hospitalization: Exam Type: CA echo doppler color flow Complete two-dimensional, color flow and Doppler transthoracic echocardiogram is performed. Staff Referring Physician: Pennie Ricardo Ultrasound Specialist: Simi Johnson Attending Provider: Rei Elena MD Summary 1. Complete two-dimensional, color flow and Doppler transthoracic echocardiogram is performed. 2. Left ventricular systolic function is normal, estimated at 60-65. 3. The left ventricular diastolic function is normal. 4. There is mild tricuspid valve regurgitation. 5. No pulmonary hypertension, estimated pulmonary arterial systolic pressure is 16 mmHg. Left Ventricle Left ventricular chamber dimension is normal. Left ventricular systolic function is normal, estimated at 60-65. There is no increased left ventricular wall thickness. Left ventricular septal wall motion is normal. The left ventricular diastolic function is normal. Right Ventricle Right ventricular chamber dimension is normal. Right ventricular systolic function is normal. Left Atria Left atrial chamber dimension is normal. Right Atria Right atrial chamber dimension is normal. Aortic Valve The aortic valve is trileaflet. There is no aortic valve sclerosis. There is no aortic valve stenosis. There is no aortic valve regurgitation. Pulmonic Valve The pulmonic valve is normal. There is no pulmonic valve stenosis. There is no pulmonic regurgitation. Mitral Valve The mitral valve has normal leaflets. There is no mitral valve stenosis. There is no mitral valve regurgitation. Tricuspid Valve The tricuspid valve leaflets are normal. There is no significant tricuspid valve stenosis. There is mild tricuspid valve regurgitation. No pulmonary hypertension, estimated pulmonary arterial systolic pressure is 16 mmHg. Pericardium/Pleural The pericardium appears normal. There is no pericardial effusion. Inferior Vena Cava Normal inferior vena cava with >50% collapse upon inspiration consistent with normal right atrial pressure, 5 mmHg. Aorta The aortic root size at the sinus of Valsalva is normal. The prox ascending aorta size is normal. Labs on day of discharge: Labs from last 24 hours 09/20/25 09/19/25 05:49 16:33 WBC 9.5 RBC 4.51 Hgb 13.7 Hct 41.8 MCV 92.7 MCH 30.4 MCHC 32.8 RDW 14.2 Plt Count 285 MPV 9.5 Immature Gran % (Auto) 0.3 Neut % (Auto) 75.2 H Lymph % (Auto) 8.4 L [place] % (Auto) 14.4 H Eos % (Auto) 1.3 Baso % (Auto) 0.4 Lymph # (Auto) 0.80 L [place] # (Auto) 1.4 H Eos # (Auto) 0.1 Baso # (Auto) 0.0 Abs Immat Gran (auto) 0.03 Absolute Neuts (auto) 7.1 H Absolute Nucleated RBC 0.000 Nucleated RBC % 0.0 PT 14.7 INR 1.1 APTT 29.4 Sodium 138 136 L Potassium 4.2 3.6 Chloride 106 102 Carbon Dioxide 25 25 Anion Gap 7 9 BUN 8 9 Creatinine 0.42 L 0.48 L Estim Creat Clear Calc 135 112 Estimated GFR > 60 > 60 Glucose 175 H 127 H Lactic Acid 1.2 Calcium 8.8 9.4 Total Bilirubin 0.6 AST 29 ALT 48 H Alkaline Phosphatase 87 C-Reactive Protein 15.1 H Total Protein 7.8 Albumin 4.2 Monoscreen Negative Imaging Radiologist's impression: ITS Impressions Chest X-Ray 09/19/25 16:54 IMPRESSION: 1. Mild cardiomegaly. Suspect airspace opacity due to consolidation in the right lower lobe. Possible pneumonia. Soft Tissue Neck CT 09/19/25 17:21 IMPRESSION: Severe tonsillitis detailed above with significant mass effect and narrowing of the airway with phlegmon detailed above although there is no rim-enhancing abscess at this time. Follow-up is recommended to assess Discharge Plan Discharge Attending physician on discharge: Ishmael Malik Consulting providers: Moo Murrieta Discharging Clinician: Ishmael Malik Anticipated Discharge Date/Time: 09/20/25 14:38 Patient Disposition: Home Activity: as tolerated Diet: as tolerated and regular Patient Instructions: Antibiotic Form Patient Language: Bulgarian Stand Alone Forms: General Discharge Information Follow-up/Referrals: Moo Murrieta MD [Physician, Ear, Nose, Throat] - Keep Reg. Scheduled Appt. PHYSICIAN NOT ON STAFF,NONSTAFF [Primary Care Provider] - 1 Week Discharge Medications: New amoxicillin-pot clavulanate 875-125 mg tablet 1 tablet PO Q12H Qty: 28 0RF methylprednisolone [Medrol (Juan M)] 4 mg tablets,dose pack See Rx Instructions .ROUTE .COMPLEX Qty: 21 0RF Rx Instructions: orally per package directions Continued ofloxacin 0.3 % drops 10 drp RIGHT EAR DAILY cetirizine-pseudoephedrine [All Day Allergy-D] 5-120 mg tablet extended release 12 hr 1 tablet PO ONCE Discontinued amoxicillin 500 mg capsule 500 mg PO BID Date of admission: 09/19/25 20:25 Primary Care Provider: PHYSICIAN NOT ON STAFF,NONSTAFF Admitting Provider: Rei Elena Attending physician on admission: Rei Elena Condition: Stable
== END 2025-09-20 17:25 | disposition home or self-care (01) ==
LOC: ANHED 17:52 → ANH3MEDSUR 20:46
PROVIDERS: Nurse Practitioner; Admitting Provider Internal Medicine; Emergency Provider Registered Nurse; Visit Provider Internal Medicine
DX: J36 Peritonsillar abscess (principal); I51.7 Cardiomegaly; R03.0 Elevated blood-pressure reading, without diagnosis of hypertension
CPT/HCPCS: 42700; 36415; 70491; 71046; 80048; 80053; 83605; 85025; 85610; 85730; 86140; 86308; 87070; 87205; 93005; 93306; 96361; 96365; 96366; 96367; 96375; 96376; 99285; A9270; G0378; J0295; J0696; J1100; J1885; J7030; Q9967